=== PATIENT | male | born 1960 | race African-American/Black ===

== ENCOUNTER 2019-03-03 17:24 | Observation (INO) ==
[2019-03-03 18:33] LABS: Basophils # 0.1 10*3/uL (0.0-0.2); Eosinophils # 0.2 10*3/uL (0.0-0.87); Eosinophils % 3.1 % (0.00-10.9); Hematocrit 45.1 VOL% (42.0-52.0); Hemoglobin 15.2 GM/DL (14.0-18.0); Immature Granulocytes % 0.3 %; Immature Granulocytes Absolute 0.02 #; Lymphocytes # 1.4 10*3/uL (1.4-4.0); Lymphocytes % 23.6 % (21.2-54.2); Mean Corpuscular HGB Conc 33.7 GM/DL (32-36); Mean Corpuscular Volume 98.5 FL (87-102); Mean Platelet Volume 11.4 FL (9.6-12.0); Monocytes % 11.9 % (1.7-12.7); Neutrophils % 60.1 % (38.7-73.9); Platelet Count 193 T/CUMM (130-400); Red Blood Count 4.58 MC/CUMM (3.8-5.5); Red Cell Distribution Width 14.3 % (9.3-17.3); White Blood Count 6.1 T/CUMM (4-12)
[2019-03-03] MEDS ORDERED: NITROGLYCERIN 2% OINT 1 INCH/GM PACK TOP STA (18:36)
[2019-03-03] MEDS ORDERED: MORPHINE 4 MG/1 ML VIAL IV STA (18:36)
[2019-03-03] MEDS ORDERED: ONDANSETRON 4 MG/2 ML VIAL IV STA (18:36)
[2019-03-03] MEDS ORDERED: methylPREDNISolone SOD SUC 125 MG/2 ML VIAL IV STA (18:36)
[2019-03-03] MEDS ORDERED: hydrALAZINE 20 MG/1 ML VIAL IV STA (18:36)
[2019-03-03] MEDS ORDERED: ASPIRIN 325 MG TABLET PO STA (18:36)
[2019-03-03 19:07] LABS: Albumin 3.8 G/DL (3.4-5.0); Bilirubin,Total 0.8 MG/DL (0.2-1.0); Calcium 9.3 MG/DL (8.5-10.1); Osmolality,Calculated 281.1 MOS/KG (273-304); Total Protein 7.6 G/DL (6.4-8.3); Troponin I 0.021 NG/ML (0.00-0.045)
[2019-03-03 19:31] LABS: Apearance,Urine CLEAR (Clear); Bilirubin,Urine Negative (Negative); Blood, Urine Negative (Negative); Glucose,Urine (UA) Negative (Negative); Ketones,Urine Negative (Negative); Nitrite,Urine Negative (Negative); Protein,Urine Negative; RBC,Urine 1 /HPF (0-4); Squamous Epithelial Cell,Urine Occasional /HPF (0-10); Urine Color Yellow (Yellow); Urine Urobilinogen < 2.0 EU/DL (0.2-1.0); WBC,Urine 1 /HPF (0-6)
[2019-03-03] MEDS ORDERED: ACETAMINOPHEN 325 MG TABLET PO PRN (19:48)
[2019-03-03] MEDS ORDERED: NICOTINE 21 MG/24 HR PATCH TRANSDERM PRN (19:48)
[2019-03-03] MEDS ORDERED: ONDANSETRON 4 MG/2 ML VIAL IV PRN (19:48)
[2019-03-03] MEDS ORDERED: traZODone 50 MG TABLET PO PRN (19:48)
[2019-03-03] MEDS ORDERED: diphenhydrAMINE CAP 25 MG CAPSULE PO PRN (19:48)
[2019-03-03] MEDS ORDERED: BISACODYL 5 MG TABLET PO PRN (19:48)
[2019-03-03] MEDS ORDERED: hydrALAZINE 20 MG/1 ML VIAL IV PRN (19:48)
[2019-03-03] MEDS ORDERED: MORPHINE 4 MG/1 ML VIAL IV PRN (19:48)
[2019-03-03] MEDS ORDERED: guaiFENesin/DM ER 600-30 MG TABLET PO PRN (19:48)
[2019-03-03 19:56] LABS: Barbiturates Screen,Urine Negative (Negative); Benzodiazepines Screen,Urine Negative (Negative); Cannabinoid Screen,Urine Positive (Negative); Opiate Screen,Urine Positive (Negative); Phencyclidine Screen,Urine Negative (Negative)
[2019-03-03 21:16] LABS: Risk Ratio 2.48; Thyroid Stimulating Hormone 0.71 uIU/ml (0.358-3.74); VLDL CHOLESTEROL 12.4 MG/DL
[2019-03-04 06:43] LABS: Albumin 3.4 G/DL (3.4-5.0); Bilirubin,Total 0.7 MG/DL (0.2-1.0); Calcium 9.1 MG/DL (8.5-10.1); Osmolality,Calculated 283.5 MOS/KG (273-304); Total Protein 7.3 G/DL (6.4-8.3)
[2019-03-04] MEDS ORDERED: ASPIRIN EC 325 MG TABLET PO SCH (09:00)
[2019-03-04] MEDS ORDERED: PANTOPRAZOLE 40 MG TABLET PO SCH (09:00)
[2019-03-04] MEDS ORDERED: LISINOPRIL 10 MG TABLET PO SCH (09:30)
[2019-03-04 16:59] VITALS: BP 149/98
== END 2019-03-04 17:08 | disposition home or self-care (01) ==
LOC: N.ED 17:24 → N.EDINP 17:24 → N.2W 20:46

== ENCOUNTER 2021-11-15 00:59 | Inpatient (IN) ==
[2021-11-15] MEDS ORDERED: ALUM/MAG/SIMETH/LIDO VISC 1:1 30 ML BOTTLE PO STA (02:49)
[2021-11-15] MEDS ORDERED: PANTOPRAZOLE 40 MG VIAL IV STA (02:49)
[2021-11-15] MEDS ORDERED: ONDANSETRON 4 MG/2 ML VIAL IV STA (02:49)
[2021-11-15 03:35] LABS: Basophils # 0.1 10*3/uL (0.0-0.2); Basophils % 0.6 % (0.0-0.8); Eosinophils # 0.1 10*3/uL (0.0-0.87); Eosinophils % 1.2 % (0.00-10.9); Hematocrit 31.1 VOL% (42.0-52.0); Hemoglobin 9.7 GM/DL (14.0-18.0); Immature Granulocytes % 0.3 %; Immature Granulocytes Absolute 0.03 #; Lymphocytes # 1.1 10*3/uL (1.4-4.0); Lymphocytes % 10.7 % (21.2-54.2); Mean Corpuscular HGB Conc 31.2 GM/DL (32-36); Mean Corpuscular Volume 94.5 FL (87-102); Mean Platelet Volume 9.5 FL (9.6-12.0); Monocytes # 0.5 10*3/uL (0.11-0.8); Neutrophils % 82.2 % (38.7-73.9); Platelet Count 303 T/CUMM (130-400); Red Blood Count 3.29 MC/CUMM (3.8-5.5); Red Cell Distribution Width 14.7 % (9.3-17.3); White Blood Count 9.8 T/CUMM (4-12)
[2021-11-15 03:56] LABS: Albumin 3.1 G/DL (3.4-5.0); Bilirubin,Total 0.7 MG/DL (0.20-1.00); Calcium 9.9 MG/DL (8.5-10.1); Osmolality,Calculated 279.4 MOS/KG (273-304); Potassium 3.8 MMOL/L (3.5-5.1); Total Protein 7.7 G/DL (6.4-8.2)
[2021-11-15] MEDS ORDERED: ENOXAPARIN 100 MG/ML SYRINGE SUBCUT STA (04:07)
[2021-11-15] MEDS ORDERED: ENOXAPARIN 80 MG/0.8 ML SYRINGE SUBCUT STA (04:22)
[2021-11-15] MEDS ORDERED: ALUM/MAG/SIMETH/LIDO VISC 1:1 30 ML BOTTLE PO PRN (05:15)
[2021-11-15] MEDS ORDERED: NITROGLYCERIN SL 0.4 MG TABLET SL PRN (05:15)
[2021-11-15] MEDS ORDERED: GLUCAGON 1 MG VIAL IM PRN (05:15)
[2021-11-15] MEDS ORDERED: ALUMINUM/MAGNES/SIMETH MAX STR 30 ML UDCUP PO PRN (05:15)
[2021-11-15] MEDS ORDERED: MORPHINE 2 MG/1 ML SYRINGE IV PRN (05:15)
[2021-11-15] MEDS ORDERED: ONDANSETRON 4 MG/2 ML VIAL IV PRN (05:15)
[2021-11-15] MEDS ORDERED: hydrALAZINE 20 MG/1 ML VIAL IV PRN (05:15)
[2021-11-15] MEDS ORDERED: ACETAMINOPHEN 325 MG TABLET PO PRN (05:15)
[2021-11-15] MEDS ORDERED: ASPIRIN CHEW 81 MG TABLET PO ONE (05:15)
[2021-11-15] MEDS ORDERED: DEXTROSE 10% 250 ML BAG IV PRN (05:36)
[2021-11-15] MEDS ORDERED: ENOXAPARIN 60 MG/0.6 ML SYRINGE SUBCUT SCH ×2 (06:00→18:00)
[2021-11-15 06:05] LABS: Risk Ratio 4.94; VLDL Cholesterol 19.8 MG/DL
[2021-11-15] MEDS ORDERED: MAGNESIUM SULF RIDER 2 GM/50 ML PREMIX IV ONE (06:07)
[2021-11-15 06:45] LABS: INR 1.1; PT Patient Result 12.2 SECS (10.5-12.0); Partial Thromboplastin Time 34.4 SECS (23.7-32.9)
[2021-11-15] MEDS: CHLORTHALIDONE 25 MG TABLET PO SCH (08:48)
[2021-11-15] MEDS: DOCUSATE SODIUM 100 MG CAPSULE PO SCH ×2 (08:48→20:21)
[2021-11-15] MEDS ORDERED: LOSARTAN 50 MG TABLET PO SCH (09:00)
[2021-11-15 09:54] LABS: Mucus,Urine Occasional /LPF (Occasional); Squamous Epithelial Cell,Urine Occasional /HPF (0-10)
[2021-11-15 09:58] LABS: Bilirubin,Urine Negative (Negative); Blood, Urine Negative (Negative); Glucose,Urine (UA) Negative (Negative); Ketones,Urine Negative (Negative); Nitrite,Urine Negative (Negative); Protein,Urine 30 mg/dL (Negative); Urine Appearance Clear (Clear); Urine Color Yellow (Yellow); Urine Urobilinogen 0.2 eU/dL (<2.0); Urine pH 6.5 (4.5-8.0)
[2021-11-15 10:10] LABS: Barbiturates Screen,Urine Negative (Negative); Benzodiazepines Screen,Urine Negative (Negative); Cannabinoid Screen,Urine Positive (Negative); Opiate Screen,Urine Negative (Negative); Phencyclidine Screen,Urine Negative (Negative)
[2021-11-15] MEDS ORDERED: FUROSEMIDE 40 MG/4 ML VIAL IV ONE (10:44)
[2021-11-15] MEDS: ASPIRIN EC 81 MG TABLET PO SCH (11:25)
[2021-11-15] MEDS: carvediloL 6.25 MG TABLET PO SCH ×2 (11:25→20:21)
[2021-11-15] MEDS ORDERED: METOCLOPRAMIDE 10 MG TABLET PO PRN (11:31)
[2021-11-15] MEDS ORDERED: MIDAZOLAM 10 MG/2 ML VIAL ONE (14:59)
[2021-11-15] MEDS ORDERED: SODIUM CHLORIDE 0.9% 1,000 ML IV SCH (15:00)
[2021-11-15] MEDS ORDERED: MIDAZOLAM 2 MG/2 ML VIAL IV ONE (15:58)
[2021-11-15] MEDS ORDERED: FUROSEMIDE 40 MG/4 ML VIAL IV SCH (16:00)
[2021-11-15] MEDS ORDERED: flumazeniL 0.5 MG/5 ML VIAL IV ONE (16:23)
[2021-11-15 17:57] LABS: Arterial Base Excess iSTAT -2 MMOL/L (-2.5-2.5); Arterial Bicarbonate iSTAT 21.5 MMOL/L (20-26); Arterial O2 Saturation iSTAT 94 % (95-100); Arterial PCO2 iSTAT 31 MM HG (35-48); Arterial PO2 iSTAT 67 MM HG (80-95); Arterial Total CO2 iSTAT 22 MMO/L (23-27); Arterial pH iSTAT 7.446 (7.35-7.45)
[2021-11-15] MEDS: VANCOMYCIN INJ 1,000 MG in SODIUM CHLORIDE 0.9% 250 ML IV SCH (20:19)
[2021-11-15] MEDS: PIPERACILLIN/TAZOBACTAM 3,375 MG in SODIUM CHLORIDE 0.9% 100 ML IV SCH (20:20)
[2021-11-15] MEDS: AMITRIPTYLINE 25 MG TABLET PO SCH (20:20)
[2021-11-15] MEDS: FERROUS SULFATE 325 MG TABLET PO SCH (20:21)
[2021-11-15] MEDS: ATORVASTATIN 40 MG TABLET PO SCH (20:21)
[2021-11-15] MEDS: BUDESONIDE/FORMOTEROL 160-4.5 INHALER 6 GM INH SCH (20:21)
[2021-11-16] MEDS: PIPERACILLIN/TAZOBACTAM 3,375 MG in SODIUM CHLORIDE 0.9% 100 ML IV SCH ×3 (01:05→20:07)
[2021-11-16 04:38] LABS: Basophils # 0.1 10*3/uL (0.0-0.2); Basophils % 0.6 % (0.0-0.8); Eosinophils # 0.1 10*3/uL (0.0-0.87); Eosinophils % 0.5 % (0.00-10.9); Hematocrit 23.6 VOL% (42.0-52.0); Hemoglobin 7.7 GM/DL (14.0-18.0); Immature Granulocytes % 0.5 %; Immature Granulocytes Absolute 0.05 #; Lymphocytes % 8.8 % (21.2-54.2); Mean Corpuscular HGB Conc 32.6 GM/DL (32-36); Mean Corpuscular Volume 91.8 FL (87-102); Mean Platelet Volume 9.8 FL (9.6-12.0); Monocytes # 0.6 10*3/uL (0.11-0.8); Monocytes % 5.8 % (1.7-12.7); Neutrophils % 83.8 % (38.7-73.9); Platelet Count 282 T/CUMM (130-400); Red Blood Count 2.57 MC/CUMM (3.8-5.5); Red Cell Distribution Width 14.6 % (9.3-17.3); White Blood Count 10.9 T/CUMM (4-12)
[2021-11-16 04:57] LABS: Osmolality,Calculated 280.5 MOS/KG (273-304); Potassium 3.9 MMOL/L (3.5-5.1)
[2021-11-16] MEDS ORDERED: NOREPINEPHRINE 8 MG in SODIUM CHLORIDE 0.9% 242 ML IV PRN (06:46)
[2021-11-16] MEDS ORDERED: diphenhydrAMINE CAP 25 MG CAPSULE PO ONE (07:32)
[2021-11-16 08:03] LABS: % Iron Saturation 12.2 % (18-50); Ferritin 580.7 ng/mL (26-388)
[2021-11-16] MEDS: ASPIRIN EC 81 MG TABLET PO SCH (08:05)
[2021-11-16 08:06] LABS: Folate 7.32 NG/ML (5.38-24.0)
[2021-11-16] MEDS: DOCUSATE SODIUM 100 MG CAPSULE PO SCH ×2 (08:06→20:07)
[2021-11-16] MEDS: CHLORTHALIDONE 25 MG TABLET PO SCH (08:06)
[2021-11-16] MEDS: FERROUS SULFATE 325 MG TABLET PO SCH ×2 (08:06→20:07)
[2021-11-16] MEDS: carvediloL 6.25 MG TABLET PO SCH (08:06)
[2021-11-16] MEDS: BUDESONIDE/FORMOTEROL 160-4.5 INHALER 6 GM INH SCH ×2 (08:07→20:07)
[2021-11-16] MEDS: PANTOPRAZOLE 40 MG TABLET PO SCH (08:40)
[2021-11-16] MEDS ORDERED: PANTOPRAZOLE 40 MG VIAL IV SCH (09:00)
[2021-11-16] MEDS ORDERED: HEPARIN/NACL 0.9% 2 UNITS/ML 2,000 UNIT/1,000 ML BAG IV ONE (10:47)
[2021-11-16] MEDS ORDERED: MIDAZOLAM 2 MG/2 ML VIAL ONE (11:09)
[2021-11-16] MEDS ORDERED: HYDROmorphone 1 MG/1 ML SYRINGE ONE (11:09)
[2021-11-16] MEDS: VANCOMYCIN INJ 1,000 MG in SODIUM CHLORIDE 0.9% 250 ML IV SCH (15:56)
[2021-11-16] MEDS: ATORVASTATIN 40 MG TABLET PO SCH (20:07)
[2021-11-16] MEDS: AMITRIPTYLINE 25 MG TABLET PO SCH (20:07)
[2021-11-17] MEDS: PIPERACILLIN/TAZOBACTAM 3,375 MG in SODIUM CHLORIDE 0.9% 100 ML IV SCH ×3 (03:55→20:35)
[2021-11-17 06:07] LABS: Basophils % 0.4 % (0.0-0.8); Eosinophils % 3.3 % (0.00-10.9); Hematocrit 23.4 VOL% (42.0-52.0); Hemoglobin 7.5 GM/DL (14.0-18.0); Lymphocytes % 11.1 % (21.2-54.2); Mean Corpuscular HGB Conc 32.1 GM/DL (32-36); Mean Corpuscular Volume 92.5 FL (87-102); Mean Platelet Volume 9.8 FL (9.6-12.0); Monocytes % 7.1 % (1.7-12.7); Neutrophils % 77.6 % (38.7-73.9); Platelet Count 272 T/CUMM (130-400); Red Blood Count 2.53 MC/CUMM (3.8-5.5); Red Cell Distribution Width 14.6 % (9.3-17.3); White Blood Count 9.5 T/CUMM (4-12)
[2021-11-17 06:08] LABS: Eosinophils # 0.3 10*3/uL (0.0-0.87); Immature Granulocytes % 0.5 %; Immature Granulocytes Absolute 0.05 #; Lymphocytes # 1.1 10*3/uL (1.4-4.0); Monocytes # 0.7 10*3/uL (0.11-0.8)
[2021-11-17 06:26] LABS: Calcium 9.1 MG/DL (8.5-10.1); Osmolality,Calculated 278.7 MOS/KG (273-304); Potassium 3.6 MMOL/L (3.5-5.1)
[2021-11-17] MEDS: PANTOPRAZOLE 40 MG TABLET PO SCH (08:08)
[2021-11-17] MEDS: DOCUSATE SODIUM 100 MG CAPSULE PO SCH ×2 (08:08→20:36)
[2021-11-17] MEDS: ASPIRIN EC 81 MG TABLET PO SCH (08:08)
[2021-11-17] MEDS: FERROUS SULFATE 325 MG TABLET PO SCH ×2 (08:08→20:36)
[2021-11-17] MEDS: BUDESONIDE/FORMOTEROL 160-4.5 INHALER 6 GM INH SCH ×2 (08:18→20:36)
[2021-11-17] MEDS: VANCOMYCIN INJ 1,000 MG in SODIUM CHLORIDE 0.9% 250 ML IV SCH (10:07)
[2021-11-17] MEDS: AMITRIPTYLINE 25 MG TABLET PO SCH (20:36)
[2021-11-17] MEDS: ATORVASTATIN 40 MG TABLET PO SCH (20:36)
[2021-11-18] MEDS: PIPERACILLIN/TAZOBACTAM 3,375 MG in SODIUM CHLORIDE 0.9% 100 ML IV SCH ×3 (04:13→21:23)
[2021-11-18 04:39] LABS: Basophils # 0.1 10*3/uL (0.0-0.2); Basophils % 0.6 % (0.0-0.8); Eosinophils # 0.4 10*3/uL (0.0-0.87); Eosinophils % 4.7 % (0.00-10.9); Hematocrit 24.1 VOL% (42.0-52.0); Hemoglobin 7.5 GM/DL (14.0-18.0); Immature Granulocytes % 0.6 %; Immature Granulocytes Absolute 0.05 #; Lymphocytes # 1.2 10*3/uL (1.4-4.0); Lymphocytes % 13.3 % (21.2-54.2); Mean Corpuscular HGB Conc 31.1 GM/DL (32-36); Mean Corpuscular Volume 94.5 FL (87-102); Mean Platelet Volume 9.6 FL (9.6-12.0); Monocytes # 0.6 10*3/uL (0.11-0.8); Monocytes % 6.9 % (1.7-12.7); Neutrophils % 73.9 % (38.7-73.9); Platelet Count 281 T/CUMM (130-400); Red Blood Count 2.55 MC/CUMM (3.8-5.5); Red Cell Distribution Width 14.6 % (9.3-17.3); White Blood Count 8.9 T/CUMM (4-12)
[2021-11-18 04:57] LABS: Osmolality,Calculated 278.5 MOS/KG (273-304); Potassium 3.3 MMOL/L (3.5-5.1)
[2021-11-18] MEDS: DOCUSATE SODIUM 100 MG CAPSULE PO SCH ×2 (08:07→21:25)
[2021-11-18] MEDS: ASPIRIN EC 81 MG TABLET PO SCH (08:07)
[2021-11-18] MEDS: PANTOPRAZOLE 40 MG TABLET PO SCH (08:08)
[2021-11-18] MEDS: FERROUS SULFATE 325 MG TABLET PO SCH ×2 (08:08→21:25)
[2021-11-18] MEDS: BUDESONIDE/FORMOTEROL 160-4.5 INHALER 6 GM INH SCH ×2 (08:08→21:26)
[2021-11-18] MEDS ORDERED: DEXTROSE 50% 25 GM/50 ML VIAL IV PRN (08:51)
[2021-11-18] MEDS: carvediloL 6.25 MG TABLET PO SCH (09:15)
[2021-11-18] MEDS: ASCORBIC ACID 500 MG TABLET PO SCH ×2 (09:58→21:25)
[2021-11-18] MEDS: POTASSIUM CHLORIDE 20 MEQ TABLET PO PRN ×2 (09:58→15:58)
[2021-11-18] MEDS: SPIRONOLACTONE 25 MG TABLET PO SCH (09:58)
[2021-11-18] MEDS ORDERED: VANCOMYCIN INJ 1,000 MG in SODIUM CHLORIDE 0.9% 250 ML IV SCH (10:00)
[2021-11-18] MEDS: INSULIN LISPRO 100 UNIT/ML SUBCUT SCH ×3 (11:42→21:24)
[2021-11-18] MEDS: VANCOMYCIN INJ 1,000 MG in SODIUM CHLORIDE 0.9% 250 ML IV SCH (13:26)
[2021-11-18] MEDS ORDERED: FUROSEMIDE 40 MG/4 ML VIAL IV ONE ×2 (17:36→22:00)
[2021-11-18] MEDS ORDERED: POTASSIUM CHLORIDE RIDER 20 MEQ/200 ML PREMIX IV ONE (17:39)
[2021-11-18] MEDS ORDERED: FUROSEMIDE 40 MG/4 ML VIAL ONE (17:39)
[2021-11-18] MEDS: POTASSIUM CHLORIDE RIDER 10 MEQ/100 ML PREMIX IV SCH ×2 (17:50→18:45)
[2021-11-18] MEDS ORDERED: AMIODARONE 150 MG/3 ML VIAL ONE (18:06)
[2021-11-18] MEDS ORDERED: AMIODARONE INJ 150 MG in DEXTROSE 5% 100 ML IV ONE (18:07)
[2021-11-18] MEDS ORDERED: AMIODARONE INJ 450 MG in DEXTROSE 5% 241 ML IV SCH (18:30)
[2021-11-18 18:33] LABS: Basophils # 0.1 10*3/uL (0.0-0.2); Basophils % 0.6 % (0.0-0.8); Eosinophils # 0.7 10*3/uL (0.0-0.87); Eosinophils % 5.2 % (0.00-10.9); Hematocrit 27.1 VOL% (42.0-52.0); Hemoglobin 8.5 GM/DL (14.0-18.0); Immature Granulocytes % 1.6 %; Immature Granulocytes Absolute 0.23 #; Lymphocytes # 2.7 10*3/uL (1.4-4.0); Lymphocytes % 19.3 % (21.2-54.2); Mean Corpuscular HGB Conc 31.4 GM/DL (32-36); Mean Corpuscular Volume 96.8 FL (87-102); Mean Platelet Volume 10.1 FL (9.6-12.0); Monocytes # 0.9 10*3/uL (0.11-0.8); Monocytes % 6.6 % (1.7-12.7); Neutrophils % 66.7 % (38.7-73.9); Platelet Count 391 T/CUMM (130-400); Red Cell Distribution Width 14.8 % (9.3-17.3); White Blood Count 14.2 T/CUMM (4-12)
[2021-11-18 19:09] LABS: Calcium 9.2 MG/DL (8.5-10.1); Osmolality,Calculated 280.5 MOS/KG (273-304); Potassium 3.7 MMOL/L (3.5-5.1)
[2021-11-18] MEDS: SENNA 8.6 MG TABLET PO SCH (21:25)
[2021-11-18] MEDS: AMITRIPTYLINE 25 MG TABLET PO SCH (21:25)
[2021-11-18] MEDS: ATORVASTATIN 40 MG TABLET PO SCH (21:25)
[2021-11-19] MEDS ORDERED: AMIODARONE INJ 450 MG in DEXTROSE 5% 241 ML IV SCH (00:30)
[2021-11-19] MEDS: PIPERACILLIN/TAZOBACTAM 3,375 MG in SODIUM CHLORIDE 0.9% 100 ML IV SCH ×3 (04:24→20:30)
[2021-11-19 06:14] LABS: Basophils # 0.1 10*3/uL (0.0-0.2); Basophils % 0.4 % (0.0-0.8); Eosinophils % 0.2 % (0.00-10.9); Hemoglobin 8.9 GM/DL (14.0-18.0); Immature Granulocytes % 0.9 %; Immature Granulocytes Absolute 0.17 #; Lymphocytes # 1.3 10*3/uL (1.4-4.0); Lymphocytes % 6.6 % (21.2-54.2); Mean Corpuscular HGB Conc 31.8 GM/DL (32-36); Mean Corpuscular Volume 94.3 FL (87-102); Mean Platelet Volume 10.2 FL (9.6-12.0); Monocytes # 0.7 10*3/uL (0.11-0.8); Monocytes % 3.7 % (1.7-12.7); Neutrophils % 88.2 % (38.7-73.9); Platelet Count 337 T/CUMM (130-400); Red Blood Count 2.97 MC/CUMM (3.8-5.5); Red Cell Distribution Width 14.8 % (9.3-17.3); White Blood Count 19.2 T/CUMM (4-12)
[2021-11-19 06:32] LABS: Calcium 9.7 MG/DL (8.5-10.1); Osmolality,Calculated 276.8 MOS/KG (273-304); Potassium 4.4 MMOL/L (3.5-5.1)
[2021-11-19 06:45] LABS: Albumin 2.4 G/DL (3.4-5.0); Bilirubin,Direct 0.12 MG/DL (0.0-0.20); Bilirubin,Indirect 0.4 MG/DL (0.0-1.0); Bilirubin,Total 0.5 MG/DL (0.20-1.00); Total Protein 7.3 G/DL (6.4-8.2)
[2021-11-19] MEDS ORDERED: CLORAZEPATE 3.75 MG TABLET PO PRN (08:01)
[2021-11-19] MEDS: DOCUSATE SODIUM 100 MG CAPSULE PO SCH ×2 (08:08→21:12)
[2021-11-19] MEDS: SENNA 8.6 MG TABLET PO SCH ×2 (08:08→21:14)
[2021-11-19] MEDS: INSULIN LISPRO 100 UNIT/ML SUBCUT SCH ×4 (08:08→21:12)
[2021-11-19] MEDS: POLYETHYLENE GLYCOL POWDER 17 GM PACK PO SCH (08:08)
[2021-11-19 08:18] LABS: Arterial Base Excess iSTAT -3 MMOL/L (-2.5-2.5); Arterial Bicarbonate iSTAT 20.6 MMOL/L (20-26); Arterial O2 Saturation iSTAT 99 % (95-100); Arterial PCO2 iSTAT 32 MM HG (35-48); Arterial PO2 iSTAT 159 MM HG (80-95); Arterial Total CO2 iSTAT 22 MMO/L (23-27); Arterial pH iSTAT 7.422 (7.35-7.45)
[2021-11-19] MEDS: ASPIRIN EC 81 MG TABLET PO SCH (08:44)
[2021-11-19] MEDS: FERROUS SULFATE 325 MG TABLET PO SCH ×2 (08:45→21:11)
[2021-11-19] MEDS: PANTOPRAZOLE 40 MG TABLET PO SCH (08:45)
[2021-11-19] MEDS: BUDESONIDE/FORMOTEROL 160-4.5 INHALER 6 GM INH SCH ×2 (08:45→21:13)
[2021-11-19] MEDS: ASCORBIC ACID 500 MG TABLET PO SCH ×2 (08:46→21:11)
[2021-11-19] MEDS: SPIRONOLACTONE 25 MG TABLET PO SCH (08:56)
[2021-11-19] MEDS: FUROSEMIDE 40 MG/4 ML VIAL IV SCH ×2 (08:56→17:07)
[2021-11-19] MEDS ORDERED: AMIODARONE INJ 100 MG in DEXTROSE 5% 100 ML IV ONE (10:18)
[2021-11-19] MEDS ORDERED: DEXTROSE 50% 25 GM/50 ML VIAL IV PRN (10:29)
[2021-11-19] MEDS ORDERED: GLUCAGON 1 MG VIAL IM PRN (10:29)
[2021-11-19] MEDS ORDERED: AMIODARONE 150 MG/3 ML VIAL ONE (10:40)
[2021-11-19] MEDS: AMIODARONE INJ 450 MG in DEXTROSE 5% 241 ML IV SCH (11:38)
[2021-11-19] MEDS: SODIUM CHLORIDE 0.9% 1,000 ML IV SCH (11:39)
[2021-11-19] MEDS: VANCOMYCIN INJ 1,000 MG in SODIUM CHLORIDE 0.9% 250 ML IV SCH (15:25)
[2021-11-19] MEDS ORDERED: DILTIAZEM 25 MG/5 ML VIAL IV ONE (15:27)
[2021-11-19] MEDS ORDERED: DILTIAZEM INJ 100 MG in SODIUM CHLORIDE 0.9% 100 ML IV SCH (15:30)
[2021-11-19] MEDS ORDERED: DIAZEPAM 5 MG TABLET PO ONE (15:33)
[2021-11-19] MEDS ORDERED: PANTOPRAZOLE 40 MG TABLET PO ONE (15:33)
[2021-11-19] MEDS: CHLORHEXIDINE 4% SOLN 118 ML BOTTLE TOP SCH ×2 (17:07→21:12)
[2021-11-19] MEDS: DEXTROSE 5% NACL 0.22% 1,000 ML IV SCH (17:07)
[2021-11-19] MEDS: ATORVASTATIN 40 MG TABLET PO SCH (21:11)
[2021-11-19] MEDS: AMITRIPTYLINE 25 MG TABLET PO SCH (21:11)
[2021-11-19] MEDS: CHLORHEXIDINE 0.12% ORAL RINSE 60 ML BOTTLE SWISH/SPIT SCH (21:13)
[2021-11-20] MEDS: AMIODARONE INJ 450 MG in DEXTROSE 5% 241 ML IV SCH ×3 (01:30→14:30)
[2021-11-20] MEDS: CHLORHEXIDINE 4% SOLN 118 ML BOTTLE TOP SCH (04:05)
[2021-11-20 04:20] LABS: Basophils # 0.1 10*3/uL (0.0-0.2); Basophils % 0.4 % (0.0-0.8); Eosinophils # 0.5 10*3/uL (0.0-0.87); Eosinophils % 3.4 % (0.00-10.9); Hematocrit 26.1 VOL% (42.0-52.0); Hemoglobin 8.5 GM/DL (14.0-18.0); Immature Granulocytes % 0.8 %; Immature Granulocytes Absolute 0.11 #; Lymphocytes # 1.8 10*3/uL (1.4-4.0); Lymphocytes % 12.7 % (21.2-54.2); Mean Corpuscular HGB Conc 32.6 GM/DL (32-36); Mean Corpuscular Volume 91.6 FL (87-102); Mean Platelet Volume 9.8 FL (9.6-12.0); Monocytes % 7.5 % (1.7-12.7); Neutrophils % 75.2 % (38.7-73.9); Platelet Count 339 T/CUMM (130-400); Red Blood Count 2.85 MC/CUMM (3.8-5.5); Red Cell Distribution Width 14.8 % (9.3-17.3); White Blood Count 13.8 T/CUMM (4-12)
[2021-11-20 04:39] LABS: Calcium 9.6 MG/DL (8.5-10.1); Osmolality,Calculated 279.8 MOS/KG (273-304); Potassium 3.4 MMOL/L (3.5-5.1)
[2021-11-20 04:51] LABS: Albumin 2.4 G/DL (3.4-5.0); Bilirubin,Total 0.6 MG/DL (0.20-1.00); Calcium 9.4 MG/DL (8.5-10.1); Osmolality,Calculated 283.5 MOS/KG (273-304); Potassium 3.7 MMOL/L (3.5-5.1); Total Protein 6.7 G/DL (6.4-8.2)
[2021-11-20] MEDS: DEXTROSE 5% NACL 0.22% 1,000 ML IV SCH (04:52)
[2021-11-20] MEDS: PIPERACILLIN/TAZOBACTAM 3,375 MG in SODIUM CHLORIDE 0.9% 100 ML IV SCH ×3 (04:52→20:23)
[2021-11-20] MEDS ORDERED: VANCOMYCIN 1,000 MG VIAL ONE (05:24)
[2021-11-20] MEDS ORDERED: LACTATED RINGERS 1,000 ML IV ONE ×2 (05:45→13:46)
[2021-11-20] MEDS ORDERED: VECURONIUM 10 MG VIAL IV ONE (05:45)
[2021-11-20] MEDS ORDERED: PHENYLEPHRINE DRIP 20 MG/250 ML PREMIX IV ONE (05:45)
[2021-11-20] MEDS ORDERED: CALCIUM CHLORIDE 1,000 MG/10 ML VIAL IV ONE ×5 (05:45→13:52)
[2021-11-20] MEDS ORDERED: AMINOCAPROIC ACID 5,000 MG/20 ML VIAL ONE (05:45)
[2021-11-20] MEDS ORDERED: SEVOFLURANE 1 UNIT/15 MINUTE INH ONE (05:45)
[2021-11-20] MEDS ORDERED: MINERAL OIL/PETROLATUM OPH OINT 3.5 GM TUBE ONE (05:45)
[2021-11-20] MEDS ORDERED: SODIUM CHLORIDE 0.9% 1,000 ML IV ONE (05:45)
[2021-11-20] MEDS ORDERED: NITROGLYCERIN DRIP 50 MG/250 ML BOTTLE IV ONE ×2 (05:45→19:26)
[2021-11-20] MEDS ORDERED: SUFentanil 250 MCG/5 ML AMP ONE ×4 (05:46→10:46)
[2021-11-20] MEDS ORDERED: MIDAZOLAM 10 MG/2 ML VIAL ONE ×5 (05:46→10:46)
[2021-11-20] MEDS ORDERED: DIAZEPAM 5 MG TABLET ONE (05:53)
[2021-11-20] MEDS ORDERED: ETOMIDATE 40 MG/20 ML VIAL IV ONE (05:57)
[2021-11-20] MEDS ORDERED: ePHEDrine 50 MG/ML VIAL ONE (06:03)
[2021-11-20] MEDS ORDERED: DILTIAZEM 50 MG/10 ML VIAL IV ONE (07:31)
[2021-11-20 07:32] LABS: ABG HCO3 24.4 MMOL/L (20-26); ABG PCO2 27.5 MM HG (35-48); ABG PH 7.519 (7.35-7.45); ABG TCO2 20.9 MMOL/L (23-27); Glucose Heart Surgery 119 MG/DL (74-106); Hematocrit Heart Surgery 23.2 PERCENT (42-52); Hemoglobin Heart Surgery 7.4 G/DL (14.0-18.0); Ionized Calcium Arterial 1.11 MMOL/L (1.21-1.46); PCO2 Patient Temp Arterial 27.5 MMHG; PH Patient Temp Arterial 7.519; Patient Temperature 37 CELCIUS; Potassium Heart/CVR 3.3 MMOL/L (3.5-5.1); Sodium Heart/CVR 137 MMOL/L (135-145)
[2021-11-20] MEDS ORDERED: CEFUROXIME INJ 1,500 MG in SODIUM CHLORIDE 0.9% 100 ML IV ONE (07:49)
[2021-11-20] MEDS ORDERED: POTASSIUM CHLORIDE RIDER 20 MEQ/100 ML PREMIX IV ONE (08:00)
[2021-11-20] MEDS ORDERED: PHENYLEPHRINE DRIP 40 MG/250 ML PREMIX IV ONE (08:01)
[2021-11-20] MEDS ORDERED: ALBUMIN 5% 25.0 GM/500 ML VIAL IV ONE (08:01)
[2021-11-20] MEDS: FUROSEMIDE 40 MG/4 ML VIAL IV SCH (08:11)
[2021-11-20] MEDS: INSULIN LISPRO 100 UNIT/ML SUBCUT SCH ×2 (08:11→14:07)
[2021-11-20] MEDS: ASPIRIN EC 81 MG TABLET PO SCH (08:12)
[2021-11-20] MEDS: POLYETHYLENE GLYCOL POWDER 17 GM PACK PO SCH (08:12)
[2021-11-20] MEDS: BUDESONIDE/FORMOTEROL 160-4.5 INHALER 6 GM INH SCH (08:12)
[2021-11-20] MEDS: SPIRONOLACTONE 25 MG TABLET PO SCH (08:12)
[2021-11-20] MEDS: CHLORHEXIDINE 0.12% ORAL RINSE 60 ML BOTTLE SWISH/SPIT SCH ×2 (08:12→20:23)
[2021-11-20] MEDS: SENNA 8.6 MG TABLET PO SCH (08:12)
[2021-11-20] MEDS: PANTOPRAZOLE 40 MG TABLET PO SCH (08:12)
[2021-11-20] MEDS: DOCUSATE SODIUM 100 MG CAPSULE PO SCH (08:12)
[2021-11-20] MEDS: FERROUS SULFATE 325 MG TABLET PO SCH (08:12)
[2021-11-20] MEDS: ASCORBIC ACID 500 MG TABLET PO SCH (08:13)
[2021-11-20 08:21] LABS: Glucose Heart Surgery 120 MG/DL (74-106); PCO2 Patient Temp Venous 38.6 MM HG; PH Patient Temp Venous 7.376; PO2 Patient Temp Venous 52.7 MM HG; Patient Temperature 37 CELCIUS; Potassium Heart/CVR 2.9 MMOL/L (3.5-5.1); Sodium Heart/CVR 136 MMOL/L (135-145); VBG Base Excess -2.3 MEQ/L (0-4); VBG HCO3 22.3 MEQ/L (24-28); VBG Oxygen Saturation 74.6 %; VBG PCO2 38.6 MMHG (41-51); VBG PH 7.376; VBG PO2 52.7 MMHG (17-40); VBG Total CO2 22.1 MMOL/L
[2021-11-20 08:22] LABS: Hematocrit Heart Surgery 14.9 PERCENT (42-52); Hemoglobin Heart Surgery < 5.0 G/DL (14.0-18.0)
[2021-11-20] MEDS ORDERED: HEPARIN/NACL 0.9% 2 UNITS/ML 1,000 UNIT/500 ML BAG IV ONE (08:34)
[2021-11-20 08:47] LABS: Hematocrit Heart Surgery 21.4 PERCENT (42-52); Hemoglobin Heart Surgery 6.8 G/DL (14.0-18.0); PCO2 Patient Temp Venous 39.7 MM HG; PH Patient Temp Venous 7.33; Potassium Heart/CVR 4.2 MMOL/L (3.5-5.1); VBG Base Excess -4.6 MEQ/L (0-4); VBG HCO3 20.4 MEQ/L (24-28); VBG Oxygen Saturation 83.6 %; VBG PCO2 39.7 MMHG (41-51); VBG PH 7.33
[2021-11-20 09:16] LABS: Hematocrit Heart Surgery 21.4 PERCENT (42-52); Hemoglobin Heart Surgery 6.8 G/DL (14.0-18.0); PCO2 Patient Temp Venous 41.1 MM HG; PH Patient Temp Venous 7.398; PO2 Patient Temp Venous 57.5 MM HG; Potassium Heart/CVR 4.1 MMOL/L (3.5-5.1); VBG Base Excess 0.5 MEQ/L (0-4); VBG HCO3 24.8 MEQ/L (24-28); VBG Oxygen Saturation 85.3 %; VBG PCO2 41.1 MMHG (41-51); VBG PH 7.398; VBG PO2 57.5 MMHG (17-40); VBG Total CO2 24.1 MMOL/L
[2021-11-20 09:44] LABS: Hematocrit Heart Surgery 26.6 PERCENT (42-52); Hemoglobin Heart Surgery 8.6 G/DL (14.0-18.0); PCO2 Patient Temp Venous 43.9 MM HG; PH Patient Temp Venous 7.36; PO2 Patient Temp Venous 44.4 MM HG; Potassium Heart/CVR 4.6 MMOL/L (3.5-5.1); VBG Base Excess -0.7 MEQ/L (0-4); VBG HCO3 23.5 MEQ/L (24-28); VBG Oxygen Saturation 73.2 %; VBG PCO2 43.9 MMHG (41-51); VBG PH 7.36; VBG PO2 44.4 MMHG (17-40); VBG Total CO2 23.2 MMOL/L
[2021-11-20] MEDS ORDERED: EPINEPHrine 1 MG/10 ML SYRINGE ONE (10:29)
[2021-11-20 10:32] LABS: ABG Base Excess -1.3 MMOL/L (-2.5-2.5); ABG HCO3 23.4 MMOL/L (20-26); ABG PCO2 36.4 MM HG (35-48); ABG PH 7.409 (7.35-7.45); ABG TCO2 21.4 MMOL/L (23-27); Glucose Heart Surgery 251 MG/DL (74-106); Hematocrit Heart Surgery 26.2 PERCENT (42-52); Hemoglobin Heart Surgery 8.4 G/DL (14.0-18.0); Ionized Calcium Arterial 1.37 MMOL/L (1.21-1.46); PCO2 Patient Temp Arterial 36.4 MMHG; PH Patient Temp Arterial 7.409; Patient Temperature 37 CELCIUS; Potassium Heart/CVR 3.8 MMOL/L (3.5-5.1); Sodium Heart/CVR 134 MMOL/L (135-145)
[2021-11-20] MEDS ORDERED: HEPARIN 10,000 UNIT/10 ML VIAL ONE ×2 (10:36→14:48)
[2021-11-20 10:39] LABS: ABG Base Excess -5.9 MMOL/L (-2.5-2.5); ABG HCO3 19.5 MMOL/L (20-26); ABG PCO2 33.6 MM HG (35-48); ABG PH 7.358 (7.35-7.45); ABG TCO2 17.7 MMOL/L (23-27); Glucose Heart Surgery 262 MG/DL (74-106); Hematocrit Heart Surgery 24.6 PERCENT (42-52); Hemoglobin Heart Surgery 7.9 G/DL (14.0-18.0); Ionized Calcium Arterial 1.69 MMOL/L (1.21-1.46); PCO2 Patient Temp Arterial 33.6 MMHG; PH Patient Temp Arterial 7.358; Patient Temperature 37 CELCIUS; Potassium Heart/CVR 3.7 MMOL/L (3.5-5.1); Sodium Heart/CVR 134 MMOL/L (135-145)
[2021-11-20 10:57] LABS: PCO2 Patient Temp Venous 55.1 MM HG; PH Patient Temp Venous 7.333; PO2 Patient Temp Venous 53.6 MM HG; Potassium Heart/CVR 3.6 MMOL/L (3.5-5.1); VBG Base Excess 2.9 MEQ/L (0-4); VBG HCO3 26.8 MEQ/L (24-28); VBG Oxygen Saturation 79.1 %; VBG PCO2 55.1 MMHG (41-51); VBG PH 7.333; VBG PO2 53.6 MMHG (17-40); VBG Total CO2 28.2 MMOL/L
[2021-11-20] MEDS ORDERED: PAPAVERINE 60 MG/2 ML VIAL ONE (11:07)
[2021-11-20 11:39] LABS: Hematocrit Heart Surgery 18.9 PERCENT (42-52); PH Patient Temp Venous 7.386; PO2 Patient Temp Venous 36.9 MM HG; Potassium Heart/CVR 3.8 MMOL/L (3.5-5.1); VBG Base Excess 1.8 MEQ/L (0-4); VBG HCO3 25.7 MEQ/L (24-28); VBG Oxygen Saturation 60.9 %; VBG PH 7.386; VBG PO2 36.9 MMHG (17-40)
[2021-11-20 11:53] LABS: PCO2 Patient Temp Venous 44.9 MM HG; PH Patient Temp Venous 7.391; PO2 Patient Temp Venous 45.1 MM HG; Potassium Heart/CVR 4.1 MMOL/L (3.5-5.1); VBG Base Excess 2.1 MEQ/L (0-4); VBG HCO3 26.1 MEQ/L (24-28); VBG Oxygen Saturation 74.7 %; VBG PCO2 44.9 MMHG (41-51); VBG PH 7.391; VBG PO2 45.1 MMHG (17-40); VBG Total CO2 26.4 MMOL/L
[2021-11-20 11:54] LABS: Hematocrit Heart Surgery 16.8 PERCENT (42-52); Hemoglobin Heart Surgery 5.3 G/DL (14.0-18.0)
[2021-11-20] MEDS ORDERED: EPINEPHrine 1 MG/ML VIAL ONE ×2 (12:12→13:54)
[2021-11-20 12:19] LABS: Hematocrit Heart Surgery 22.8 PERCENT (42-52); Hemoglobin Heart Surgery 7.3 G/DL (14.0-18.0); PCO2 Patient Temp Venous 43.4 MM HG; PH Patient Temp Venous 7.365; PO2 Patient Temp Venous 38.9 MM HG; Potassium Heart/CVR 4.6 MMOL/L (3.5-5.1); VBG Base Excess -0.5 MEQ/L (0-4); VBG HCO3 23.6 MEQ/L (24-28); VBG Oxygen Saturation 68.9 %; VBG PCO2 43.4 MMHG (41-51); VBG PH 7.365; VBG PO2 38.9 MMHG (17-40); VBG Total CO2 23.5 MMOL/L
[2021-11-20] MEDS ORDERED: MIDAZOLAM 2 MG/2 ML VIAL ONE ×2 (12:39)
[2021-11-20] MEDS ORDERED: SUFentanil 50 MCG/ML AMP ONE ×2 (12:40)
[2021-11-20 13:15] LABS: ABG Base Excess -7.8 MMOL/L (-2.5-2.5); ABG Oxygen Saturation 99.6 % (95-100); ABG PH 7.296 (7.35-7.45); ABG TCO2 17.2 MMOL/L (23-27); Glucose Heart Surgery 413 MG/DL (74-106); Hematocrit Heart Surgery 22.4 PERCENT (42-52); Hemoglobin Heart Surgery 7.2 G/DL (14.0-18.0); Ionized Calcium Arterial 1.41 MMOL/L (1.21-1.46); PH Patient Temp Arterial 7.296; Patient Temperature 37 CELCIUS; Sodium Heart/CVR 134 MMOL/L (135-145)
[2021-11-20] MEDS: SODIUM CHLORIDE 0.9% 1,000 ML IV SCH (14:07)
[2021-11-20] MEDS: VANCOMYCIN INJ 1,000 MG in SODIUM CHLORIDE 0.9% 250 ML IV SCH (14:08)
[2021-11-20] MEDS: LACTATED RINGERS 1,000 ML IV PRN ×3 (14:20→18:00)
[2021-11-20] MEDS: PHENYLEPHRINE DRIP 40 MG/250 ML PREMIX IV PRN ×3 (14:20→22:33)
[2021-11-20] MEDS: SODIUM CHLORIDE 0.45% 1,000 ML IV SCH ×2 (14:30)
[2021-11-20] MEDS ORDERED: EPINEPHrine 1 MG/10 ML SYRINGE IV ONE (14:45)
[2021-11-20] MEDS ORDERED: POTASSIUM CHLORIDE RIDER 10 MEQ/100 ML PREMIX IV PRN (14:46)
[2021-11-20] MEDS ORDERED: MIDAZOLAM 10 MG/2 ML VIAL IV PRN (14:46)
[2021-11-20] MEDS ORDERED: INSULIN REGULAR 100 UNIT/ML IV ONE (14:46)
[2021-11-20] MEDS ORDERED: MIDAZOLAM 2 MG/2 ML VIAL IV PRN (14:46)
[2021-11-20] MEDS ORDERED: MORPHINE 10 MG/1 ML VIAL IV PRN (14:46)
[2021-11-20] MEDS ORDERED: LACTATED RINGERS 250 ML IV PRN (14:46)
[2021-11-20] MEDS ORDERED: ACETAMINOPHEN 650 MG SUPP RECTAL PRN (14:46)
[2021-11-20] MEDS ORDERED: MAGNESIUM SULF RIDER 4 GM/100 ML PREMIX IV PRN (14:46)
[2021-11-20] MEDS ORDERED: VECURONIUM 10 MG VIAL IV PRN ×2 (14:46)
[2021-11-20] MEDS ORDERED: ONDANSETRON 4 MG/2 ML VIAL IV PRN (14:46)
[2021-11-20] MEDS ORDERED: MAGNESIUM SULF RIDER 2 GM/50 ML PREMIX IV PRN (14:46)
[2021-11-20] MEDS ORDERED: NITROPRUSSIDE 100 MG in DEXTROSE 5% 250 ML IV PRN (14:46)
[2021-11-20] MEDS ORDERED: INSULIN REGULAR 100 UNIT/ML IV PRN (14:46)
[2021-11-20] MEDS ORDERED: CALCIUM CHLORIDE 1,000 MG/10 ML SYRINGE IV PRN (14:46)
[2021-11-20] MEDS ORDERED: POTASSIUM CHLORIDE RIDER 20 MEQ/100 ML PREMIX IV PRN (14:46)
[2021-11-20] MEDS ORDERED: ALBUMIN 25% 25 GM/100 ML VIAL IV ONE (14:47)
[2021-11-20] MEDS ORDERED: methylPREDNISolone SOD SUC 1,000 MG/8 ML VIAL ONE (14:48)
[2021-11-20] MEDS ORDERED: PROTAMINE SULFATE 250 MG/25 ML VIAL IV ONE (14:48)
[2021-11-20] MEDS ORDERED: LIDOCAINE 2% 5 ML VIAL ONE (14:48)
[2021-11-20] MEDS ORDERED: MAGNESIUM SULFATE 5 GM/10 ML VIAL IV ONE (14:48)
[2021-11-20] MEDS ORDERED: DEXTROSE 5% KCL 20 MEQ 40 MEQ/2,000 ML BAG IV ONE (14:48)
[2021-11-20] MEDS ORDERED: PROTAMINE SULFATE 50 MG/5 ML VIAL IV ONE (14:49)
[2021-11-20] MEDS ORDERED: FUROSEMIDE 20 MG/2 ML VIAL ONE (14:49)
[2021-11-20] MEDS ORDERED: MANNITOL 12.5 GM/50 ML VIAL IV ONE (14:49)
[2021-11-20 14:50] LABS: ABG Base Excess -10.7 MMOL/L (-2.5-2.5); ABG HCO3 15.9 MMOL/L (20-26); ABG PCO2 36.3 MM HG (35-48); ABG PH 7.248 (7.35-7.45); Glucose Heart Surgery 425 MG/DL (74-106); Hematocrit Heart Surgery 25.7 PERCENT (42-52); Hemoglobin Heart Surgery 8.3 G/DL (14.0-18.0); Potassium Heart/CVR 4.9 MMOL/L (3.5-5.1)
[2021-11-20] MEDS ORDERED: SODIUM BICARBONATE 50 MEQ/50 ML VIAL IV ONE ×4 (14:50→17:11)
[2021-11-20 14:54] LABS: Basophils # 0.1 10*3/uL (0.0-0.2); Basophils % 0.3 % (0.0-0.8); Eosinophils # 0.2 10*3/uL (0.0-0.87); Eosinophils % 0.9 % (0.00-10.9); Hematocrit 25.7 VOL% (42.0-52.0); Hemoglobin 8.2 GM/DL (14.0-18.0); Immature Granulocytes % 4.7 %; Immature Granulocytes Absolute 0.99 #; Lymphocytes % 14.3 % (21.2-54.2); Mean Corpuscular HGB Conc 31.9 GM/DL (32-36); Mean Corpuscular Volume 95.2 FL (87-102); Mean Platelet Volume 10.4 FL (9.6-12.0); Monocytes # 1.3 10*3/uL (0.11-0.8); Monocytes % 6.1 % (1.7-12.7); NRBC # 0.02 10*3/uL; Neutrophils % 73.7 % (38.7-73.9); Platelet Count 137 T/CUMM (130-400); Red Cell Distribution Width 15.3 % (9.3-17.3); White Blood Count 21.2 T/CUMM (4-12)
[2021-11-20] MEDS ORDERED: FUROSEMIDE 100 MG/10 ML VIAL IV ONE (14:54)
[2021-11-20] MEDS ORDERED: SODIUM BICARBONATE 50 MEQ/50 ML SYRINGE IV ONE (14:54)
[2021-11-20] MEDS ORDERED: DEXTROSE 10% 250 ML BAG IV PRN ×2 (14:58→14:59)
[2021-11-20] MEDS ORDERED: FUROSEMIDE INJ 120 MG in SODIUM CHLORIDE 0.9% 50 ML IV ONE (15:00)
[2021-11-20 15:05] LABS: Albumin 1.8 G/DL (3.4-5.0); Calcium 12.7 MG/DL (8.5-10.1); Osmolality,Calculated 300.4 MOS/KG (273-304)
[2021-11-20 15:06] LABS: CKMB % 10.44 %
[2021-11-20] MEDS: SODIUM BICARBONATE 50 MEQ/50 ML VIAL IV PRN ×5 (15:15→18:30)
[2021-11-20 15:20] LABS: INR 1.7; PT Patient Result 17.8 SECS (10.5-12.0)
[2021-11-20] MEDS: SODIUM BICARB INJ 150 MEQ in STERILE WATER INJ 1,000 ML IV SCH (15:30)
[2021-11-20] MEDS: INSULIN REGULAR DRIP 100 ML IV SCH (15:30)
[2021-11-20] MEDS: FUROSEMIDE INJ 100 MG in SODIUM CHLORIDE 0.9% 90 ML IV SCH ×2 (15:50→19:51)
[2021-11-20] MEDS: ALBUMIN 5% 12.5 GM/250 ML VIAL IV PRN ×3 (16:00→20:50)
[2021-11-20 16:03] LABS: Partial Thromboplastin Time > 211.8 SECS (23.7-32.9)
[2021-11-20 16:16] LABS: ABG Base Excess -9.6 MMOL/L (-2.5-2.5); ABG HCO3 16.7 MMOL/L (20-26); ABG Oxygen Saturation 99.6 % (95-100); ABG PCO2 33.9 MM HG (35-48); ABG PH 7.287 (7.35-7.45); ABG TCO2 15.1 MMOL/L (23-27); Glucose Heart Surgery 367 MG/DL (74-106); Hematocrit Heart Surgery 28.3 PERCENT (42-52); Hemoglobin Heart Surgery 9.1 G/DL (14.0-18.0); Potassium Heart/CVR 5.5 MMOL/L (3.5-5.1)
[2021-11-20 17:02] LABS: ABG Base Excess -7.7 MMOL/L (-2.5-2.5); ABG HCO3 18.1 MMOL/L (20-26); ABG Oxygen Saturation 98.6 % (95-100); ABG PCO2 36.3 MM HG (35-48); ABG PH 7.303 (7.35-7.45); ABG TCO2 16.6 MMOL/L (23-27); Glucose Heart Surgery 327 MG/DL (74-106); Hematocrit Heart Surgery 29.9 PERCENT (42-52); Hemoglobin Heart Surgery 9.6 G/DL (14.0-18.0); Potassium Heart/CVR 5.8 MMOL/L (3.5-5.1)
[2021-11-20 18:04] LABS: ABG Base Excess -9.2 MMOL/L (-2.5-2.5); ABG HCO3 17.1 MMOL/L (20-26); ABG Oxygen Saturation 99.5 % (95-100); ABG PCO2 32.1 MM HG (35-48); ABG PH 7.309 (7.35-7.45); ABG TCO2 14.5 MMOL/L (23-27); Glucose Heart Surgery 311 MG/DL (74-106); Hematocrit Heart Surgery 35.4 PERCENT (42-52); Hemoglobin Heart Surgery 11.5 G/DL (14.0-18.0)
[2021-11-20 18:08] LABS: Potassium Heart/CVR 6.3 MMOL/L (3.5-5.1)
[2021-11-20 19:21] LABS: ABG Base Excess -6.2 MMOL/L (-2.5-2.5); ABG HCO3 19.4 MMOL/L (20-26); ABG PCO2 32.2 MM HG (35-48); ABG PH 7.363 (7.35-7.45); ABG TCO2 16.2 MMOL/L (23-27); Glucose Heart Surgery 286 MG/DL (74-106); Hematocrit Heart Surgery 37.4 PERCENT (42-52); Hemoglobin Heart Surgery 12.1 G/DL (14.0-18.0); Potassium Heart/CVR 5.1 MMOL/L (3.5-5.1)
[2021-11-20 19:38] VITALS: BP 123/35
[2021-11-20 20:21] LABS: Anisocytosis Slight; Band Neutrophils 1 % (0-10); Lymphocytes 11 % (20-55); Metamyelocytes 6 %; Platelet Estimate Normal; Polychromasia Slight; Total Cells Counted 100
[2021-11-20] MEDS ORDERED: NITROGLYCERIN DRIP 50 MG/250 ML BOTTLE IV PRN (20:26)
[2021-11-20 21:07] LABS: ABG Base Excess -4.5 MMOL/L (-2.5-2.5); ABG HCO3 20.7 MMOL/L (20-26); ABG Oxygen Saturation 97.2 % (95-100); ABG PCO2 35.6 MM HG (35-48); ABG PH 7.364 (7.35-7.45); Glucose Heart Surgery 253 MG/DL (74-106); Hematocrit Heart Surgery 37.1 PERCENT (42-52); Potassium Heart/CVR 4.2 MMOL/L (3.5-5.1)
[2021-11-20 23:52] LABS: ABG HCO3 22.7 MMOL/L (20-26); ABG Oxygen Saturation 97.1 % (95-100); ABG PCO2 36.2 MM HG (35-48); ABG PH 7.398 (7.35-7.45); ABG PO2 99.4 MM HG (80-95); ABG TCO2 19.8 MMOL/L (23-27); Glucose Heart Surgery 180 MG/DL (74-106); Hematocrit Heart Surgery 36.4 PERCENT (42-52); Hemoglobin Heart Surgery 11.8 G/DL (14.0-18.0); Potassium Heart/CVR 3.9 MMOL/L (3.5-5.1)
[2021-11-21 00:13] LABS: CKMB % 6.87 %
[2021-11-21 00:15] LABS: High Sensitive Troponin I* 7192.2 ng/L (0-78)
[2021-11-21] MEDS: FUROSEMIDE INJ 100 MG in SODIUM CHLORIDE 0.9% 90 ML IV SCH ×4 (01:27→17:46)
[2021-11-21] MEDS: SODIUM BICARB INJ 150 MEQ in STERILE WATER INJ 1,000 ML IV SCH (02:30)
[2021-11-21] MEDS: PIPERACILLIN/TAZOBACTAM 3,375 MG in SODIUM CHLORIDE 0.9% 100 ML IV SCH (03:11)
[2021-11-21] MEDS: PHENYLEPHRINE DRIP 40 MG/250 ML PREMIX IV PRN (03:23)
[2021-11-21] MEDS: ALBUMIN 5% 12.5 GM/250 ML VIAL IV PRN ×2 (03:30→12:55)
[2021-11-21 04:06] LABS: ABG Base Excess 4.1 MMOL/L (-2.5-2.5); ABG Oxygen Saturation 97.3 % (95-100); ABG PCO2 33.3 MM HG (35-48); ABG PH 7.513 (7.35-7.45); ABG PO2 90.4 MM HG (80-95); ABG TCO2 23.8 MMOL/L (23-27); Glucose Heart Surgery 96 MG/DL (74-106); Hemoglobin Heart Surgery 11.4 G/DL (14.0-18.0); Potassium Heart/CVR 3.1 MMOL/L (3.5-5.1)
[2021-11-21 04:21] LABS: PT Patient Result 21.5 SECS (10.5-12.0); Partial Thromboplastin Time 73.7 SECS (23.7-32.9)
[2021-11-21 04:27] LABS: Bilirubin,Direct 0.56 MG/DL (0.0-0.20)
[2021-11-21] MEDS: AMIODARONE INJ 450 MG in DEXTROSE 5% 241 ML IV SCH ×2 (04:35→17:37)
[2021-11-21 05:24] LABS: Basophils % 0.2 % (0.0-0.8); Eosinophils % 0.1 % (0.00-10.9); Hematocrit 33.1 VOL% (42.0-52.0); Hemoglobin 11.3 GM/DL (14.0-18.0); Immature Granulocytes % 2.8 %; Immature Granulocytes Absolute 0.47 #; Lymphocytes # 1.3 10*3/uL (1.4-4.0); Lymphocytes % 7.6 % (21.2-54.2); Mean Corpuscular HGB Conc 34.1 GM/DL (32-36); Mean Platelet Volume 11.4 FL (9.6-12.0); Monocytes # 0.7 10*3/uL (0.11-0.8); Monocytes % 4.4 % (1.7-12.7); NRBC # 0.16 10*3/uL; Neutrophils % 84.9 % (38.7-73.9); Platelet Count 75 T/CUMM (130-400); Red Blood Count 3.85 MC/CUMM (3.8-5.5); Red Cell Distribution Width 16.2 % (9.3-17.3); White Blood Count 16.6 T/CUMM (4-12)
[2021-11-21 05:47] LABS: Platelet Estimate Decreased
[2021-11-21 05:50] LABS: ABG Base Excess 5.2 MMOL/L (-2.5-2.5); ABG HCO3 29.1 MMOL/L (20-26); ABG Oxygen Saturation 96.6 % (95-100); ABG PCO2 33.7 MM HG (35-48); ABG PH 7.526 (7.35-7.45); ABG PO2 83.7 MM HG (80-95); Glucose Heart Surgery 82 MG/DL (74-106); Hematocrit Heart Surgery 33.4 PERCENT (42-52); Hemoglobin Heart Surgery 10.8 G/DL (14.0-18.0); Potassium Heart/CVR 3.7 MMOL/L (3.5-5.1)
[2021-11-21 05:50] LABS: Albumin 2.6 G/DL (3.4-5.0); Bilirubin,Total 1.8 MG/DL (0.20-1.00); Calcium 9.4 MG/DL (8.5-10.1); Osmolality,Calculated 297.4 MOS/KG (273-304); Potassium 3.2 MMOL/L (3.5-5.1); Total Protein 4.4 G/DL (6.4-8.2)
[2021-11-21 06:16] LABS: VBG Base Excess 6.5 MEQ/L (0-4); VBG HCO3 29.1 MEQ/L (24-28); VBG Oxygen Saturation 30.6 %; VBG PCO2 45.5 MMHG (41-51); VBG PH 7.447; VBG PO2 23.3 MMHG (17-40); VBG Total CO2 28.7 MMOL/L
[2021-11-21 06:22] LABS: CKMB % 7.09 %
[2021-11-21 06:25] LABS: High Sensitive Troponin I* 5578.3 ng/L (0-78)
[2021-11-21 07:07] LABS: ABG Base Excess 4.9 MMOL/L (-2.5-2.5); ABG HCO3 28.9 MMOL/L (20-26); ABG Oxygen Saturation 98.4 % (95-100); ABG PH 7.501 (7.35-7.45); ABG TCO2 25.2 MMOL/L (23-27); Glucose Heart Surgery 92 MG/DL (74-106); Hematocrit Heart Surgery 33.4 PERCENT (42-52); Hemoglobin Heart Surgery 10.8 G/DL (14.0-18.0); Potassium Heart/CVR 3.8 MMOL/L (3.5-5.1)
[2021-11-21 09:05] LABS: ABG Base Excess 4.2 MMOL/L (-2.5-2.5); ABG HCO3 28.2 MMOL/L (20-26); ABG Oxygen Saturation 98.7 % (95-100); ABG PH 7.491 (7.35-7.45); ABG TCO2 24.6 MMOL/L (23-27); Glucose Heart Surgery 114 MG/DL (74-106); Hematocrit Heart Surgery 33.1 PERCENT (42-52); Hemoglobin Heart Surgery 10.7 G/DL (14.0-18.0); Potassium Heart/CVR 4.1 MMOL/L (3.5-5.1)
[2021-11-21] MEDS ORDERED: PANTOPRAZOLE 40 MG VIAL IV SCH (09:30)
[2021-11-21] MEDS: CHLORHEXIDINE 0.12% ORAL RINSE 60 ML BOTTLE SWISH/SPIT SCH (09:38)
[2021-11-21] MEDS ORDERED: AMPICILLIN INJ 2,000 MG in SODIUM CHLORIDE 0.9% 100 ML IV SCH (11:00)
[2021-11-21 12:10] LABS: ABG Base Excess 0.7 MMOL/L (-2.5-2.5); ABG Oxygen Saturation 98.9 % (95-100); ABG PCO2 34.5 MM HG (35-48); ABG PH 7.454 (7.35-7.45); ABG TCO2 21.7 MMOL/L (23-27); Glucose Heart Surgery 108 MG/DL (74-106); Hematocrit Heart Surgery 33.3 PERCENT (42-52); Hemoglobin Heart Surgery 10.8 G/DL (14.0-18.0); Potassium Heart/CVR 4.9 MMOL/L (3.5-5.1)
[2021-11-21] MEDS ORDERED: DOBUTamine 500 MG/250 ML PREMIX IV PRN (12:52)
[2021-11-21] MEDS: INSULIN REGULAR DRIP 100 ML IV SCH (17:45)
[2021-11-21] MEDS: SODIUM CHLORIDE 0.45% 1,000 ML IV SCH ×2 (17:45)
== END 2021-11-21 13:33 | disposition expired | DRG 216 ==
LOC: N.ED 00:59 → SUATTDRO 05:15 → N.EDINP 05:15 → N.TELEN 12:52 → N.CC 17:14 → N.CVR 11-20 10:51
PROVIDERS: ADMIT Internal Medicine; ATTEND Internal Medicine